=== PATIENT | male | born 1990 | race American Indian/Alaskan Native ===

== ENCOUNTER 2017-05-23 18:39 | Emergency (ER) | payer BC ==
[2017-05-23 20:14] LABS: Basophils % (Auto) 2.1 % (0.0-1.8); Eosinophils % (Auto) 6.5 % (0.0-4.3); Hemoglobin 14.5 gm/dl (11.8-15.2); Mean Corpuscular HGB Conc 32 % (32-34); Mean Corpuscular Hemoglobin 26 pg (28-32); Mean Corpuscular Volume 82 fl (84-94); Platelet Count 137 K/mm3 (140-440); Red Blood Count 5.49 M/mm3 (3.65-5.03); Red Cell Distribution Width 13.1 % (13.2-15.2); White Blood Count 4.8 K/mm3 (4.5-11.0)
[2017-05-23 20:24] LABS: Anion Gap 18 mmol/L; Blood Urea Nitrogen 17 mg/dL (9-20); Carbon Dioxide 26 mmol/L (22-30); Chloride 98.6 mmol/L (98-107); Glucose 128 mg/dL (75-100); Sodium 139 mmol/L (137-145)
[2017-05-23 21:22] LABS: Urine Drugs of Abuse Note Disclamer
[2017-05-23 21:42] LABS: Bilirubin,Urine NEG (Negative); Blood,Urine NEG (Negative); Ketones,Urine NEG (Negative); Leukocyte Esterase,Urine NEG (Negative); Nitrite,Urine NEG (Negative); Protein,Urine <15 mg/dL mg/dL (Negative); Urobilinogen,Urine < 2.0 mg/dL (<2.0)
--- NOTE | 2017-05-24 04:06 | Emergency Department Report ---
ED Syncope HPI - General Chief Complaint: Syncope Stated Complaint: LOW HEART RATE Time Seen by Provider: 05/24/17 04:25 Source: patient Exam Limitations: no limitations - History of Present Illness Initial Comments: This is a 26-year-old male. He is previously unknown to me. He has no chronic medical conditions. The patient presents to the ER after episode of syncope. Patient reports that he was eating yesterday, at noon, and began to have mild nausea and diaphoresis and thinks that he passed out. Prior to passing out, he did not have any headache, neck pain, chest pain, abdominal pain or shortness of breath. He reports a go episode today. The episode happened almost 20 hours ago. The patient has no weakness or numbness, there is no leg pain or leg swelling, no recent trips greater than 4 hours, and no recent hospital admissions. There is no hematemesis or bright red blood per rectum. The patient reports that he works in construction, plays basketball, and has unlimited exercise tolerance. Timing/Prior Episodes: single episode today Precipitating Factors: Positive: diaphoresis, lightheadedness Context: sitting Loss of Consciousness: brief (seconds) Current Symptoms: back to normal - Related Data Allergies/Adverse Reactions: Allergies No Known Allergies Allergy (Verified 05/23/17 19:30) ED Review of Systems ROS: Stated complaint: LOW HEART RATE Other details as noted in HPI Constitutional: diaphoresis. denies: malaise Eyes: denies: vision change ENT: denies: epistaxis Respiratory: denies: shortness of breath Cardiovascular: syncope. denies: chest pain Gastrointestinal: denies: abdominal pain, nausea, diarrhea Genitourinary: denies: urgency, dysuria Musculoskeletal: denies: back pain, joint swelling, arthralgia Skin: denies: rash, lesions Neurological: denies: headache, weakness, paresthesias ED Past Medical Hx - Past Medical History Previous Medical History?: No - Surgical History Past Surgical History?: No - Social History Smoking Status: Never Smoker Substance Use Type: Alcohol ED Physical Exam - General Limitations: No Limitations General appearance: alert, in no apparent distress - Head Head exam: Present: atraumatic, normocephalic - Eye Eye exam: Present: normal appearance, PERRL, EOMI. Absent: nystagmus - ENT ENT exam: Present: normal exam, normal orophraynx, mucous membranes moist, normal external ear exam - Neck Neck exam: Present: normal inspection, full ROM. Absent: tenderness, meningismus - Respiratory Respiratory exam: Present: normal lung sounds bilaterally. Absent: respiratory distress, wheezes, rales, rhonchi, stridor, chest wall tenderness - Cardiovascular Cardiovascular Exam: Present: normal rhythm, bradycardia, normal heart sounds. Absent: systolic murmur, diastolic murmur, rubs, gallop - GI/Abdominal GI/Abdominal exam: Present: soft, normal bowel sounds. Absent: distended, tenderness, guarding, rebound, rigid, pulsatile mass - Rectal Rectal exam: Present: deferred - Extremities Exam Extremities exam: Present: normal inspection, full ROM, normal capillary refill. Absent: pedal edema, joint swelling, calf tenderness - Back Exam Back exam: Present: normal inspection, full ROM. Absent: tenderness, CVA tenderness (R), CVA tenderness (L), muscle spasm, paraspinal tenderness, vertebral tenderness - Neurological Exam Neurological exam: Present: alert, oriented X3, normal gait, other (Extraocular movements intact. Tongue midline. No facial droop. Facial sensation intact to light touch in the V1, V2, V3 distribution bilaterally. 5 and 5 strength in 4 extremities.. Sensation is intact to light touch in 4 extremities.). Absent : motor sensory deficit - Psychiatric Psychiatric exam: Present: normal affect, normal mood - Skin Skin exam: Present: warm, dry, intact, normal color. Absent: rash ED Course Vital Signs 05/23/17 05/24/17 05/24/17 19:30 00:13 01:39 Temperature 97.8 F Pulse Rate 57 L 43 L Respiratory 20 14 Rate Blood Pressure 112/75 131/77 123/80 O2 Sat by Pulse 100 100 Oximetry 05/24/17 05/24/17 05/24/17 01:42 01:50 02:05 Temperature Pulse Rate 42 L 46 L 42 L Respiratory 12 17 18 Rate Blood Pressure 123/80 123/80 O2 Sat by Pulse 96 100 100 Oximetry 05/24/17 05/24/17 05/24/17 02:11 02:21 02:31 Temperature Pulse Rate 39 L 41 L 42 L Respiratory 24 15 19 Rate Blood Pressure 116/77 124/78 124/78 O2 Sat by Pulse 100 100 100 Oximetry 05/24/17 05/24/17 05/24/17 02:41 02:51 03:00 Temperature Pulse Rate 46 L 42 L 44 L Respiratory 18 16 17 Rate Blood Pressure 124/78 124/78 112/76 O2 Sat by Pulse 100 100 99 Oximetry 05/24/17 05/24/17 05/24/17 03:11 03:21 03:31 Temperature Pulse Rate 42 L 46 L 47 L Respiratory 12 14 14 Rate Blood Pressure 112/76 112/76 112/76 O2 Sat by Pulse 100 99 99 Oximetry 05/24/17 05/24/17 05/24/17 03:41 03:51 04:00 Temperature Pulse Rate 49 L 42 L 46 L Respiratory 17 13 12 Rate Blood Pressure 112/76 112/76 120/83 O2 Sat by Pulse 100 100 94 Oximetry 05/24/17 05/24/17 05/24/17 04:11 04:21 04:31 Temperature Pulse Rate 43 L 43 L 52 L Respiratory 15 16 13 Rate Blood Pressure 120/83 120/83 120/83 O2 Sat by Pulse 100 100 100 Oximetry 05/24/17 05/24/17 05/24/17 04:41 04:51 05:00 Temperature Pulse Rate 73 50 L 44 L Respiratory 13 14 17 Rate Blood Pressure 120/83 120/83 120/79 O2 Sat by Pulse 99 99 99 Oximetry ED Medical Decision Making - Lab Data Result diagrams: 05/23/17 19:49 05/23/17 19:49 Vital Signs 05/23/17 05/24/17 05/24/17 19:30 00:13 01:39 Temperature 97.8 F Pulse Rate 57 L 43 L Respiratory 20 14 Rate Blood Pressure 112/75 131/77 123/80 O2 Sat by Pulse 100 100 Oximetry 05/24/17 05/24/17 05/24/17 01:42 01:50 02:05 Temperature Pulse Rate 42 L 46 L 42 L Respiratory 12 17 18 Rate Blood Pressure 123/80 123/80 O2 Sat by Pulse 96 100 100 Oximetry 05/24/17 05/24/17 05/24/17 02:11 02:21 02:31 Temperature Pulse Rate 39 L 41 L 42 L Respiratory 24 15 19 Rate Blood Pressure 116/77 124/78 124/78 O2 Sat by Pulse 100 100 100 Oximetry 05/24/17 05/24/17 05/24/17 02:41 02:51 03:00 Temperature Pulse Rate 46 L 42 L 44 L Respiratory 18 16 17 Rate Blood Pressure 124/78 124/78 112/76 O2 Sat by Pulse 100 100 99 Oximetry 05/24/17 05/24/17 05/24/17 03:11 03:21 03:31 Temperature Pulse Rate 42 L 46 L 47 L Respiratory 12 14 14 Rate Blood Pressure 112/76 112/76 112/76 O2 Sat by Pulse 100 99 99 Oximetry 05/24/17 03:41 Temperature Pulse Rate 49 L Respiratory 17 Rate Blood Pressure 112/76 O2 Sat by Pulse 100 Oximetry Labs 05/23/17 05/23/17 05/23/17 19:49 19:49 21:00 WBC 4.8 RBC 5.49 H Hgb 14.5 Hct 45.0 MCV 82 L MCH 26 L MCHC 32 RDW 13.1 L Plt Count 137 L Lymph % (Auto) 26.4 [place] % (Auto) 6.9 Eos % (Auto) 6.5 H Baso % (Auto) 2.1 H Lymph # 1.3 [place] # 0.3 Eos # 0.3 Baso # 0.1 Seg Neutrophils % 58.1 Seg Neutrophils # 2.8 Sodium 139 Potassium 4.0 Chloride 98.6 Carbon Dioxide 26 Anion Gap 18 BUN 17 Creatinine 1.0 Estimated GFR > 60 BUN/Creatinine Ratio 17.00 Glucose 128 H Calcium 9.0 Troponin T < 0.010 Urine Color Yellow Urine Turbidity Clear Urine pH 7.0 Ur Specific [place] 1.017 Urine Protein <15 mg/dl Urine Glucose (UA) Neg Urine Ketones Neg Urine Blood Neg Urine Nitrite Neg Urine Bilirubin Neg Urine Urobilinogen < 2.0 Ur Leukocyte Esterase Neg Urine WBC (Auto) 1.0 Urine RBC (Auto) 2.0 Urine Opiates Screen Urine Methadone Screen Ur Barbiturates Screen Ur Phencyclidine Scrn Ur Amphetamines Screen U Benzodiazepines Scrn Urine Cocaine Screen U Marijuana (THC) Screen Drugs of Abuse Note 05/23/17 05/24/17 21:00 02:36 WBC RBC Hgb Hct MCV MCH MCHC RDW Plt Count Lymph % (Auto) [place] % (Auto) Eos % (Auto) Baso % (Auto) Lymph # [place] # Eos # Baso # Seg Neutrophils % Seg Neutrophils # Sodium Potassium Chloride Carbon Dioxide Anion Gap BUN Creatinine Estimated GFR BUN/Creatinine Ratio Glucose Calcium Troponin T < 0.010 Urine Color Urine Turbidity Urine pH Ur Specific [place] Urine Protein Urine Glucose (UA) Urine Ketones Urine Blood Urine Nitrite Urine Bilirubin Urine Urobilinogen Ur Leukocyte Esterase Urine WBC (Auto) Urine RBC (Auto) Urine Opiates Screen Presumptive negative Urine Methadone Screen Presumptive negative Ur Barbiturates Screen Presumptive negative Ur Phencyclidine Scrn Presumptive negative Ur Amphetamines Screen Presumptive negative U Benzodiazepines Scrn Presumptive negative Urine Cocaine Screen Presumptive negative U Marijuana (THC) Screen Presumptive negative Drugs of Abuse Note Disclamer - EKG Data -: EKG Interpreted by Me Rate: bradycardia - EKG Data When compared to previous EKG there are: previous EKG unavailable 05/24/17 04:27 Sinus bradycardia, 46 bpm, normal axis, normal intervals, biphasic T-wave in V3 and V4, possible juvenile T-wave inversion. - Medical Decision Making Differential diagnosis: Arrhythmia, structural cardiac disease, conduction disturbance, bradycardia, sick sinus syndrome Conduction disturbance Assessment and plan: 26-year-old male with a single episode of syncope. He is currently afebrile, with reassuring vital signs with the exception of asymptomatic bradycardia. Patient has been observed in the ER for most 10 hours. No pulmonary embolus or DVT risk factors, he is low risk by well's criteria, and he is perc negative. Furthermore, the patient is to be negative, and heart score negative. EKG demonstrates nonspecific T-wave abnormalities in the anteroseptal leads, may be persistent juvenile T-wave inversion. EKG is not morphologically consistent with Arrhythmogenic Right Ventricular Cardiomyopathy or Brugada syndrome. The case was discussed with the floor covering contractor on-call, Dr. Bravo. He indicates he can to the patient this Friday to follow up. I had an extensive discussion with the patient. Through shared decision making, the patient elects to follow up as an outpatient cardiology, and I think at this plan of care is reasonable. He will be discharged at this time. Return precautions are reviewed. Critical care attestation.: If time is entered above; I have spent that time in minutes in the direct care of this critically ill patient, excluding procedure time. ED Disposition Clinical Impression: Bradycardia Disposition: DC-01 TO HOME OR SELFCARE Is pt being admited?: No Does the pt Need Aspirin: No Condition: Stable Instructions: Bradycardia (ED) Additional Instructions: Rest and avoid heavy lifting and strenuous physical activity. Do not drive a car or operate motor vehicles, do not play sports or engage in vigorous physical activities until cleared by a floor covering contractor. Follow-up with the floor covering contractor as listed on Friday. Contact office of the following phone number and address: [id number] [place], [place] [address] Hours: Friday 8:30AM 5:00PM Return to the ER right away with fevers, chills, chest pain, shortness of breath , intractable nausea or vomiting, confusion, inability to tolerate liquid feeds , chest pain. Referrals: PRIMARY CARE, [Primary Care Provider] - 3-5 Days URIEL BRAVO MD [Staff Physician] - 3-5 Days
[2017-05-24 05:12] VITALS: BP 120/79
== END 2017-05-24 05:16 | disposition home or self-care (01) ==
LOC: ED 18:39
DX: R00.1 Bradycardia, unspecified (principal)
CPT/HCPCS: 36415; 80048; 80307; 81001; 84484; 85025; 93005; 93010